=== PATIENT | female | born 1960 | race Caucasian/White ===

== ENCOUNTER → 2017-12-13 15:20 | Outpatient (CLI) | payer OTHER, SELFPAY | PROVIDERS: Visit Provider Obstetrics & Gynecology | DX: N39.0 Urinary tract infection, site not specified (principal) | CPT/HCPCS: 87086 ==

== ENCOUNTER → 2018-05-11 16:25 | Outpatient (CLI) | payer SELFPAY ==
[2018-05-17 13:25] LABS: HPV Reflexed? NOT INDICATED
== END ==
PROVIDERS: Family Provider Family Medicine; PCP Family Medicine; Visit Provider Obstetrics & Gynecology
DX: Z12.4 Encounter for screening for malignant neoplasm of cervix (principal)
CPT/HCPCS: 88175; G0145

== ENCOUNTER → 2022-02-10 | Outpatient (CLI) | payer OTHER, SELFPAY ==
--- NOTE | 2022-02-10 17:00 | RAD_ITS ---
STUDY: X-RAY CHEST REASON FOR EXAM: Female, 61 years old. breast cancer TECHNIQUE: PA and lateral COMPARISON: None. FINDINGS: LUNGS: No consolidation. No pneumothorax. MEDIASTINUM: Aorta tortuous and atherosclerotic. CARDIAC SILHOUETTE: Not enlarged. BONES AND SOFT TISSUES: No acute abnormalities. RAD/Chest PA and Lateral IMPRESSION: No evidence of active intrathoracic disease. Electronically Signed: Dora Tang MD at 7:34 EDT ,
== END | disposition home or self-care (01) ==
LOC: RAD 16:54
PROVIDERS: Visit Provider Internal Medicine Medical Oncology
DX: C50.919 Malignant neoplasm of unspecified site of unspecified female breast (principal)
CPT/HCPCS: 71046

== ENCOUNTER → 2022-02-18 | Outpatient (CLI) | payer OTHER, SELFPAY ==
--- NOTE | 2022-02-18 11:00 | MRI_ITS ---
STUDY: BILATERAL BREAST MR WITHOUT AND WITH CONTRAST REASON FOR EXAM: Female, 61 years old. Breast cancer. TECHNIQUE: Multi-sequence multi-echo imaging of both breasts was performed with a dedicated breast coil. T1-weighted and T2-weighted images were performed before the administration of contrast. T1-weighted images were also performed after the intravenous administration of 15 mL of Clariscan contrast. COMPARISON: Screening mammogram dated 01/12/2022, left breast ultrasound dated 01/14/2022 exam left breast biopsy images dated 01/28/2022. FINDINGS: RIGHT BREAST: The breast tissue is scattered fibroglandular densities with minimal background enhancement. There are no abnormal enhancing masses or areas of non-mass enhancement in the right breast. LEFT BREAST: The breast tissue is scattered fibroglandular densities with minimal background enhancement. 2 irregular enhancing masses in the upper aspect of the right breast. The smaller mass is more inferiorly and measures 1.4 cm x 1.3 cm x 1 cm. Superior to this mass is a larger irregular enhancing mass measuring 1.9 cm x 1.8 cm x 1.9 cm. Tissue clip marker artifact is noted in both of these masses. These masses correspond to the mammographic and ultrasonographic abnormalities seen on prior comparison studies. Morphologically normal lymph nodes in both axillae. There is no abnormality in the visualized regions of the chest or liver. MRI/Breast Bilateral W/O and W IMPRESSION: 2 irregular enhancing masses in the upper and slightly outer aspect of the left breast corresponding to the comparison imaging. Morphologically normal bilateral axillary lymph nodes. CATEGORY: BIRADS Category 6: Known Biopsy-Proven Malignancy - Appropriate Action Should Be Taken. A letter regarding these results will be sent to the patient by the facility within 30 days. Electronically Signed: Boby Sanchez MD at 9:54 EDT ,
== END | disposition home or self-care (01) ==
PROVIDERS: Referring Provider Internal Medicine Medical Oncology; Visit Provider Internal Medicine Medical Oncology
DX: C50.412 Malignant neoplasm of upper-outer quadrant of left female breast (principal)
CPT/HCPCS: 77049; A9575; A4216; C8908

== ENCOUNTER 2022-02-26 16:15 | Observation (INO) | payer OTHER, SELFPAY ==
--- NOTE | 2022-02-24 11:10 | EKG12_ITS ---
Test Reason : PREOP Blood Pressure : / mmHG Vent. Rate : 070 BPM Atrial Rate : 070 BPM P-R Int : 130 ms QRS Dur : 086 ms QT Int : 380 ms P-R-T Axes : 008 061 034 degrees QTc Int : 410 ms Normal sinus rhythm Normal ECG Confirmed by MARIAJOSE LAYTON, MAICOL ([id number]), design editor FLORENTIN CRUZ ([id number]) on 02/25/2022 8:51:58 AM Referred By: Rickey Zamudio Confirmed By:MAICOL BILLY MD
[2022-02-26] VITALS (9 sets, daily range): BP systolic 139–161; BP diastolic 75–91; PULSE 63–76; RESP 16–18; TEMP 36.4–36.9; O2SAT 97–100; BMI 28.2
--- NOTE | 2022-02-26 | AXNB_PTH ---
PATIENT: MELI DUEÑAS [place] [facility] [place][id number] AGE/SX: 61/F [place]OM[place] [facility] [place]02/26/[address]: Dr. Rickey Zamudio MD : 1960 BED: 1 DIS: 02/27/2022 SPEC #: [id number] RECD: 02/26/22 13:33 STATUS: KAY REDk #: [id number] CHRISTINE: 02/26/22 00:[address]: Rickey Zamudio DEPT: SURGICAL PATHOLOGY RECD BY: Prema Domingo ENTERED: 02/26/22 14:28 SP TYPE: AX NODE BX OTHR DR: YONI Hall Tissues: A - Axillary lymph node, NOS B - Axillary lymph node, NOS C - Left breast, NOS D - Right breast, NOS Procedures: Frozen Section (charge) Frozen Section Add'l ([facility]) Surgery Specimen Level V HEADER OPERATION: Left mastectomy, nuclear med tracer, sentinel lymph node biopsy PRE-OP DIAGNOSIS: Invasive ductal carcinoma left breast, prophylactic right total mastectomy TISSUE SUBMITTED: A - Left axillary sentinel lymph nodes, FS at 1323, B - Additional left axillary sentinel lymph nodes, FS at 1356, C - Left breast, suture cameron axillary side of breast, D - Right breast, suture cameron lateral aspect FROZEN SECTION DIAGNOSIS A. Left axillary lymph nodes, biopsy: Two out of two lymph nodes, negative for metastatic carcinoma. : 02/26/2022 B. Additional left axillary sentinel lymph nodes, biopsy: Two out of two lymph nodes, negative for metastatic carcinoma. : 02/26/2022 Case has been reviewed in consultation with Dr. Butt who concurs with the above diagnosis. IDC:AM MICROSCOPIC DIAGNOSIS A. Left axillary lymph nodes, biopsy: One out of two lymph nodes, positive for micrometastatic carcinoma. See comment. B. Additional left axillary sentinel lymph nodes, biopsy: Two out of two lymph nodes, negative for metastatic carcinoma. See comment. C. Left breast, mastectomy: Invasive ductal carcinoma, multifocal. Ductal carcinoma in situ. See cancer summary in the comment section. D. Right breast, mastectomy: Focal minimal fibrocystic changes and dense fibrosis. Focal microcalcifications. Nipple, no pathologic diagnosis. : 03/04/2022 COMMENT A. One lymph node is positive for micrometastatic carcinoma. Largest focus of micrometastatic carcinoma measures 0.4 mm in greatest dimension. Extranodal extension is not seen. Immunohistochemistry ([id number]) supports the diagnosis of micrometastatic carcinoma. Scant lymphoid tissue is noted in block #2, only in the frozen section slides. Permanent section shows only fibroadipose tissue. B. The lymph nodes are negative for metastatic carcinoma on multiple H & E levels and immunohisto-chemical stains for cytokeratins ([id number]). BREAST CANCER SUMMARY Procedure ? total mastectomy Specimen laterality - left Tumor size ? larger tumor, 1.5 x 1.5 x 1 cm Histologic grade (Tony grade): Glandular/tubular differentiation score - Nuclear pleomorphism score - 2 Mitotic count score - 1 Overall grade - grade 2 (score of 6) Tumor focality ? two foci of invasive carcinoma. Size of individual foci: Larger focus of invasive carcinoma (inferior tumor) 1.5 x 1.5 x 0.5 cm. Smaller focus invasive carcinoma. 0.5 cm in greatest dimension (superior tumor). This focus of tumor predominantly shows ductal carcinoma in situ, solid papillary type. Ductal carcinoma in situ ? present Positive for extensive intraductal component (EIC). Estimated size of DCIS ? largest focus of DCIS - 2 cm in greatest dimension. Number of blocks with DCIS - 9 Number of blocks examined - 22 Architectural pattern ? solid and solid papillary Nuclear grade - grade 2 (intermediate) Necrosis ? not identified Lobular carcinoma in situ ? not present Tumor extension: Skin ? skin is present and uninvolved Nipple ? DCIS does not involve nipple epidermis Skeletal muscle ? no skeletal muscle is present. Margins: Invasive carcinoma margin ? the tumor is 1 cm away from the closest posterior margin. Ductal carcinoma in situ margin ? the solid papillary carcinoma larger tumor is 0.6 cm away from the closest superior margin. Regional lymph nodes: Number of lymph nodes examined - 4 Number of sentinel lymph nodes examined - 4 Number of lymph nodes with micrometastases ? 1 (largest focus of micrometastatic carcinoma measures 0.4 mm in greatest dimension). Number of lymph nodes with macrometastases, or isolated tumor cells ? 0 Extranodal extension ? not present. Treatment effect - no known presurgical therapy. Lymphvascular invasion ? not identified Dermal lymphvascular invasion ? not identified Distant metastasis ? not applicable Additional Pathologic Findings ? - hyalinized fibroadenoma (0.8 cm in greatest dimension). - Intraductal hyperplasia with focal atypia. - Ductal dilatation. Ancillary Studies: Previously performed at [facility] ([id number]) breast, left, 2 o?clock, mass, ER: positive (90-100%, strong intensity) IL: positive (~20%, strong intensity) Ijq7omv: negative (score 0) left, 2 o?clock, lateral mass: ER: positive (90-100%, strong intensity) IL: positive (2%, weak) Sib7gry: equivocal (heterogeneity present, score 2+) Her2 by DUALISH can be performed if clinically needed. Please notify the laboratory if it is needed. Microcalcifications ? Present in the benign breast tissue. Clinical History - Previously performed at [facility] ([id number]) breast, left, 2 o?clock, mass, core biopsy with diagnosis of invasive ductal carcinoma, grade 2 and breast, left, 2 o?clock, lateral mass, core biopsy with diagnosis of invasive ductal carcinoma, grade 2 and ductal carcinoma in situ, solid type, grade 2 PATHOLOGIC STAGE: pT1c(n) pN1mi(sn) pMx The above summary is in compliance with [employer] [place] [employer] (CAP) Cancer Protocols Checklist and [place] Joint Committee on Cancer (AJCC), Staging Manual, 8th Ed. MICROSCOPIC DESCRIPTION Slides are reviewed. GROSS DESCRIPTION A - Received fresh for frozen section diagnosis labeled with the patient's name is a specimen designated left axillary sentinel lymph nodes. The specimen consists of a piece of fibroadipose tissue measuring 5 x 3.5 x 1 cm. Two lymph nodes are identified measuring 2 cm in greatest dimension. The lymph nodes are submitted in entirety for frozen section diagnosis in two cassettes as follows: 1 - one bisected lymph node, 2 - one lymph node. / SJ: 02/26/2022 B - Received fresh for frozen section diagnosis labeled with the patient's name is a specimen designated additional left axillary sentinel lymph nodes. The specimen consists of a piece of fibroadipose tissue measuring 4 x 3.5 x 0.5 cm. Two nodules consistent with lymph nodes measuring 0.5 and 1.5 cm in greatest dimension are identified. The lymph nodes are submitted entirely for frozen section diagnosis in two cassettes as follows: 1 - one bisected lymph node, 2 - second lymph node. / SJ: 02/26/2022 C - Received in fixative is one container labeled with the patient's name and designated left breast, suture cameron axillary side of breast. The specimen consists of a mastectomy specimen consisting of breast tissue with overlying skin ellipse. The breast tissue measures 22 x 19 x 6 cm and the overlying skin ellipse measures 17.5 x 6.5 cm and nipple measures 1 cm in greatest dimension. The specimen is inked as follows: posterior - black, superior - blue, inferior - green, medial - red and lateral - orange. Sections reveal a neri indurated masses in the upper outer quadrant measuring 2.0 x 2.0 x 1.5 cm. This mass is 0.6 cm away from the superior margin. A second mass is present inferior to the first mass (~0.2?cm away from the first mass) measuring 1.5 x 1.5 x 1.0 cm. this mass is 1.0 cm away from the closest posterior margin. Section of the rest of the specimen reveal neri- yellow adipose cut surfaces mixed with neri fibrous areas. Sections will be submitted after fixation. / SJ: 02/27/2022 Sections of the second tumor shows dense fibrous area adjacent to it. Senior Operations Manager sections are submitted in 20 cassettes as follows: 1 - nipple, entirely submitted, 2??perpendicular medial, lateral and inferior margins, 3 - perpendicular posterior margin and skin, 47??tumor #1 (4 also contains the closest superior margin), 8-17 - second tumor present inferiorly and adjacent surrounding tissue (cassette 8 contains the area with the clip), 18-20 - Senior Operations Manager sections from the other areas. / SJ: 03/03/2022 More sections are submitted as follows: Cassettes 21 & 22 - superior tumor. Both tumors are submitted in entirety. / SJ:gray 03/04/2022 D - Received in fixative is one container labeled with the patient's name and designated right breast. The specimen consists of a mastectomy measuring 20 x 17 x 4 cm. An ellipse of unremarkable skin containing a centrally located nipple is present on the anterior surface. The skin fragment measures 17.5 x 6.5 cm. The specimen weighs 673 gm. The specimen is inked as follows: superior - blue, inferior - green and posterior - black. The specimen is serially sectioned from a medial to lateral fashion. The cut surfaces reveal mostly fatty parenchyma with focal dense, white fibrous streaks. No distinct mass lesion is identified. Senior Operations Manager sections are submitted in ten cassettes as follows: 1 - nipple and areola, 2??perpendicular superior margin, 3 - perpendicular inferior margin, 4 - perpendicular medial margin, 5??perpendicular lateral margin, 6 - perpendicular inked margin, 7-10 - Senior Operations Manager sections of breast parenchyma. Note, sections are submitted after additional fixation. / AM:gray 02/27/2022 TC:0 CPT: 25000 x4, 51861 x2, 45637 x2 ADDENDUM ADDENDUM ADDENDUM ADDENDUM ADDENDUM ADDENDUM ADDENDUM ADDENDUM ADDENDUM ADDENDUM ADDENDUM 03/25/2022 10:07 ADDENDUM 04/08/2022 09:17 ADDENDUM 03/25/2022 10:07 ADDENDUM 03/25/2022 10:07 ADDENDUM 03/25/2022 10:07 ADDENDUM 03/25/2022 10:07 AUTOMATED BREAST CANCER HER2/YUMIKO FISH ANALYSIS FROM [employer] Interpretation and Results: Negative / Not Amplified HER2 : CEP-17 Ratio: 0.9:1 Average HER2 Signal: 2.3 Average CEP-17 Signal: 2.4 Number of Tumor Cells Scanned: 50 Please see complete report in e-chart or EMR An order for Oncotype testing was received from Dr. Acevedo. This necessitated case review, block and slide selection by pathologist at [facility]. Breast Cancer Recurrence Score = 12 Results of the complete Oncotype testing ([employer] report) are viewable in EMR under: Reports - Pathology - Lab Pathology Report, Scanned.
--- NOTE | 2022-02-26 | IMM_PTH ---
PATIENT: MELI DUEÑAS LOC: [facility] U#:[id number] AGE/SX: 61/F [place] [facility] [place]: Dr. Rickey Zamudio MD : 1960 BED: 1 DIS: 02/27/2022 SPEC #: [id number] RECD: 03/04/22 13:12 STATUS: KAY REQ #: [id number] CHRISTINE: 02/26/22 00:[address]: Rickey Zamudio DEPT: IMMUNOHISTOCHEMISTRY RECD BY: Prema Domingo ENTERED: 03/04/22 13:15 SP TYPE: IMMUNO OTHR DR: YONI Hall Tissues: A - Axillary lymph node, NOS B - Axillary lymph node, NOS Procedures: CK7 (add) Pankeratin (initial) Pankeratin (add) PHYSICIAN & INSTITUTION [place] [address] SPECIMEN INFORMATION: Tissue Source: A ? Left axillary sentinel lymph nodes, B ? Additional left axillary sentinel lymph nodes Clinical Info: Invasive ductal carcinoma left breast Specimen Number: [id number] A1, B1 & B2 CPT code: 96511 x2, 04064 x4 METHODOLOGY: Deparaffinized sections of prefer/formalin-fixed tissue or PAP/DQ stained slides are incubated with monoclonal/polyclonal antibodies/oligonucleotide probes. Localization is made via biotin free immunoperoxidase method. Appropriate controls are performed and reacted as expected. Results on target cell population are indicated in the following table: RESULTS: ANTIBODY / CLONE RESULT Block A1 AE1-3 (AE1/AE3/PCK26) positive (micrometastasis) CK7 (OV-TL12/30) positive (micrometastasis) Block B1 AE1-3 (AE1/AE3/PCK26) negative CK7 (OV-TL12/30) negative Block B2 AE1-3 (AE1/AE3/PCK26) negative CK7 (OV-TL12/30) negative These tests were developed and their performance characteristics determined by [facility]. They may not have been cleared or approved by the U.S. Food and Drug Administration. The FDA has determined that such clearance or approval is not necessary. The above immunohistochemical/dualISH markers are ordered and reviewed by the Pathologist. INTERPRETATION: A. Left axillary sentinel lymph node, biopsy: One lymph node, positive for micrometastatic carcinoma. See comment. B. Additional left axillary sentinel lymph nodes, biopsy: Two out of two lymph nodes, negative for metastatic carcinoma. SJ:gray 03/05/2022 Comment: Largest focus of micrometastatic carcinoma measures 0.4 mm in greatest dimension. Case has been reviewed in consultation with Dr. Butt who concurs with the above diagnosis. IDC:AM
--- NOTE | 2022-02-26 09:30 | NM_ITS ---
PROCEDURE: NUCLEAR MEDICINE Injection [place] Node - LEFT breast(s). REASON FOR EXAM: Female, 61 years old. Left breast cancer. TECHNIQUE: [place] node localization using radionuclide methods of the LEFT breast(s) was performed following subcutaneous administration of 1.1 mCi of of sulfur colloid Tc-99m. FINDINGS: 1.1 mCi of technetium labeled sulfur colloid were injected subcutaneously in the left retroareolar region. NM/Lymph Node Injection Only IMPRESSION: 1.1 mCi of Tc labeled sulfur colloid injected subcutaneously in 4 equal aliquots in the left periareolar region. Electronically Signed: Ady Lau MD at 13:55 EDT ,
[2022-02-26] MEDS: Lactated Ringers 1,000 ML 15 ML IV ×2 (09:35→16:47)
--- NOTE | 2022-02-26 11:29 | HP.PCM_ITS ---
History and Physical Date of Admission: 02/26/22 Visit Reasons:?L Breast Surgery Consult Chief Complaint: left breast surgery consult Python Architect Required: No Accompanied by: Is patient in pain?: No Allergies No Known Allergies Allergy (Verified 02/20/22 13:59) Medications NK? 02/10/22 [History Confirmed 02/20/22] PFSH Medical History? Chronic eczema Dysfunctional uterine bleeding Effusion, right knee Mass of left breast on mammogram Surgical History? H/O repair of rotator cuff History of delivery History of pyloroplasty Hx of cholecystectomy Family History? Grandmother CancerAunt CancerGrandfather CAD (coronary artery disease)Father HypertensionFather?? Cancer ?? ? prostate ?? ? Social History? Smoking Status:? Never smoker HPI HPI HPI: MELI DUEÑAS, is a 61 F who presents to the office today for surgical consultation regarding biopsy-proven invasive ductal carcinoma multifocal left breast disease.? The patient is being referred by Dr. Ede Acevedo and a written copy of my surgical consult recommendations will return to him.? By report the patient had a core biopsy performed at [facility] on January 28, 2022 of 2 lesions in the left breast2 o'clock position.? The more medial lesion invasive ductal carcinoma grade 2 estrogen receptor positive at 9100%.? Progesterone receptor positive at 20%.? HER2/ananth negative.? The more lateral lesion left breast 2 o'clock position shows invasive ductal carcinoma grade 2.? Estrogen receptor positive at 9200%.? Progesterone receptor +2% weak HER2/ananth was equivocal. On January 12, 2022 at [facility] the patient had bilateral screening mammography.? Left breast was felt that the 2 lesions at the 2 o'clock position.? The more medial lesion 14 x 15 x 16 mm in size in the slightly more lateral lesion 10 x 12 mm in size.? There is also a grouping of dense calcifications in the upper outer aspect of the left breast unchanged from the previous exam of October 06, 2019.? On January 12, 2022 at [facility] the patient had a left breast ultrasound.? 2 o'clock position more medial lesion 15 x 15 x 16 mm in size in the slightly more lateral lesion at 2:00 15 x 15 x 11 mm in size.? These were felt to be diagnostic category 4B moderate suspicion for malignancy.? The patient also had left breast magnification tomographic views performed January 12, 2022.? An area of distortion previously noted medially on the cc view of the left breast was not further identified.? The mass is noted at the 2:00 positions were confirmed. A breast MRI was obtained at the [facility] on February 18, 2022.? This demonstrates 2 irregular enhancing masses upper outer left breast the smaller one slightly inferiorly measuring 1.4 x 1.3 x 1 cm in the superior one 1.9 x 1.8 x 1.9 cm.? Tissue marker clips identified.? Morphology of lymph nodes in both axilla are similar.? No evidence for suspicious adenopathy. ROS General General: Yes breast cancer; No weight change, appetite, fatigue, colon cancer or weakness HEENT HEENT: No difficulty swallowing, eye injury, eye surgery, swollen glands or hoarseness Endo Endocrine: No thyroid disease, diabetes mellitus, thyroid cancer, Hair loss, heat intolerance or cold intolerance Skin Skin: No rash or changing moles Breast Breast: Yes left breast lump and abnormal mammogram; No right breast lump, nipple discharge, breast pain, abnormal US or breast enlargement Musc Musculoskeletal: No back problems, arthritis, rheumatoid arthritis, gout or joint pain Cardio Cardiovascular: No murmur, pacemaker, heart disease, atrial fibrillation, high blood pressure, heart attack, heart stent, palpitations, shortness of breat with exertion or chest pain Psych Psychiatric: No depression, anxiety or hearing voices Resp Respiratory: No shortness of breath, No sleep apnea, No cough, No COPD, No asthma, No emphysema and No wheezing Gastro Gastrointestinal: No abdominal pain, No nausea or vomiting, No diarrhea, No constipation, No blood in stool, No acid reflux, No hemorrhoids, No ulcers, No gallbladder problem and No black,tarry stools Reid Hematologic: No blood thinners, No blood disorders, No bleeding, No anemia and No blood clots Neuro Neurologic: No system reviewed and no additional complaints, except as documented, No as per HPI, No abnormal gait, No abnormal hearing, No abnormal movements, No abnormal speech, No behavioral changes, No burning sensations, No confusion, No convulsions, No disequilibrium, No dizziness, No localized weakness, No frequent falls, No headache(s), No lack of coordination, No loss of vision, No memory loss, No numbness, No other visual disturbances, No radicular pain, No restless legs, No sensory deficit, No syncope, No tingling, No tremor(s), No weakness and No other Exam Const General: cooperative, healthy appearing, comfortable and no acute distress Nutritional Appearance: overweight Orientation: alert and awake [facility] [place] Head: normal to inspection Ears: hearing grossly normal bilaterally Eyes General: appearance normal, both eyes and all related structures Neck Neck: normal visual inspection Chest Other: Right breast: No focal mass no nipple discharge no axillary or clavicular adenopathy Left breast: Firm partially mobile mass upper outer quadrant left breast 2 o'clock position which on ultrasound measuring the distance of the conglomerate measures out to be at least 6 cm.? No palpable left axillary adenopathy.? Slight discoloration from the recent needle core biopsy.? No axillary adenopathy. Resp Effort & Inspection: normal respiratory effort Auscultation: clear to auscultation bilaterally Cardio Rate: regular rate Rhythm: regular rhythm GI Inspection: normal to inspection Palpation: soft and no hepatosplenomegaly Auscultation: normal bowel sounds Musc Cervical Spine: normal cervical lordosis Skin General: no rashes or lesions noted Neuro General: patient alert, patient awake and patient oriented x3 Extrem General: normal to inspection and no calf tenderness Psych Appearance: grossly normal Assessment and Plan Assessment and Plan (1) Invasive ductal carcinoma of left breast: ?Status:?Acute ?Plan: Today was an extensive 60-minute office consultation.? I have looked with ultrasound to try to help with measurement upper outer quadrant left breast.? The 2 lesions by short distance but the conglomerate being at least 6 cm in the upper outer quadrant of the left breast.? No palpable adenopathy and no visualized adenopathy on MRI. In great detail we discussed treatment options.? We discussed breast conservation technique lumpectomy sentinel node biopsy with nuclear tracer and blue dye and subsequent radiation treatment.? Great detail discussed the technique the possibility of positive surgical margins the cosmetic change from the size of tumor root being removed and the possible need for completion axill enio lymph node dissection.? We discussed the potential of positive margins and need to return for surgery.? We compared and contrasted that to a left total mastectomy with sentinel node biopsy possible axillary dissection.? We discussed mastectomy with or without immediate reconstruction or reconstruction at all. After listening to the patient she states that previous mammograms had demonstrated some abnormality in the upper inner quadrant left breast which was felt to be benign.? Her most recent mammogram for comparison was 2 years ago.? She is very interested at this point in proceeding with definitive treatment.? She is concerned about the amount of time that already has gone by. I have been very insistent of her that she with the help of her consider all the treatment options available.? We have discussed referral to a tertiary center if requested.? We additionally discussed the potential of neoadjuvant chemotherapy to further assist with the possibility of breast conservation surgery and a lumpectomy.? The patient and however are very much interested in avoiding chemotherapy if at all possible. At this point she is favoring a left mastectomy with sentinel node biopsy and possible axillary dissection if indicated.? She is not wanting breast reconstruction at this time. We have provided her information packets.? We also have arranged for her to see Dr. Ede Acevedo early next week.? We have tentatively set an operative date for February 26, 2022.? The patient and however are absolutely aware that this procedure can be delayed subsequently if they are not sure of the procedure that is desired. She has had an opportunity to ask and have questions answered.? We will tentatively schedule and proceed as noted. Copy: Dr. Ede Acevedo and YONI Hall M.D., F.A.C.S. The patient has been seen now twice in consultation with Dr. Ede Acevedo. Subsequent to his most recent consultation where he discussed left breast conservation surgery versus mastectomy the patient in discussion with her presented and requested that not only that we proceed with a therapeutic left total mastectomy with left axillary sentinel lymph node biopsy and if need be axillary lymph node dissection but also she was requesting a prophylactic right total mastectomy. She is declining reconstruction at this time. She is aware of the technique, benefit, risk, alternatives. She has had an opportunity to ask and have questions answered and we had had an extensive discussion during our office visit as well. She confirms that this is how she would like to proceed. Rickey Zamudio M.D., F.A.C.S.
--- NOTE | 2022-02-26 12:16 | EX.PCM.DISCH ---
Discharge Instructions Procedure Breast Surgery Diet Discharge Diet: No restrictions Activity Discharge Activity: May Not Drive (for 2-3 days or while taking narcotic pain meds.) May shower in (days): 6 Lifting Restrictions: 10 pounds for 1 week. Dressing / Incision Call your doctor if your incision/area has: Continuous Slow Oozing and Sudden Increased Bleeding Call your doctor if you observe: Fever of 101 or Higher Suture Line Care: Avoid Pulling/Pushing and Avoid Pinching/Bending Additional Dressing/Incision Instructions:: Please change your dressings daily. You may utilize a Q-tip and peroxide to cleanse at the drain exit site and then apply dry gauze and tape. Leave the Steri-Strips in place at the mastectomy sites. No cleansing of this area required until after the Steri-Strips are removed. Empty, measure, record your drain output and please bring into your office appointment with you. Follow Up Care Please Follow Up With: Rickey Zamudio MD When: Please call [phone] for office follow up appt. on 03/03/22. Discharge Plan Admission Admit Date/Time: 02/26/22 16:15 Primary Reason for Your Visit: Left breast cancer. Prophylactic right mastectomy Attending Provider: Rickey Zamudio Primary Care Provider: Ivana Munoz Discharge Orders/Prescriptions Prescriptions: New hydrocodone-acetaminophen 5-325 mg tablet 1 tab PO Q6H PRN (Reason: pain) 3 Days Qty: 10 0RF Referrals / Follow Up: Ivana Munoz PA [Primary Care Provider] - Disposition Disposition (needs filled in before D/C Order can be placed): Home, Self Care
[2022-02-26] MEDS: Cefazolin 2 GM in 0.9% Normal Saline 100 ML IV (12:23)
[2022-02-26] MEDS: Isosulfan Blue 1% 5 ML Vial (12:35)
--- NOTE | 2022-02-26 16:21 | OP.PCM_ITS ---
Report of Operation Date of Procedure: 02/26/22 Pre-Operative Diagnosis: Multifocal upper outer quadrant left breast invasive d uctal carcinoma Post-Operative Diagnosis: Same Surgery/Procedure Performed:: Blue dye and nuclear tracer left axillary sentinel lymph node biopsy with subsequent left total mastectomy Prophylactic right total mastectomy Description of Surgical Findings:: Timeout informed consent was obtained. 61-year-old female was taken to the operating placed upon the table underwent general anesthesia. Bilateral arms were carefully wrapped with soft roll and placed on arm holders at right angles to the table. The patient received 2 g of Ancef intravenously. Bilateral breasts were sterilely prepped and draped. Nuclear tracer had already been injected in the left periareolar area per radiology. I injected 3 cc of i sosulfan blue dye into the left breast and perform massage for 3 minutes. Subsequently a transverse ellipse of skin nipple areolar total mastectomy incision performed. The superior flap was created using sharp and electrocautery dissection. Significant amount of pressurized small blood vessels were encountered requiring increased treatment with cautery or even 3-0 Vicryl suture ligatures. Dissection was then performed into the axilla where the blue dye tracing was identified and the neoprobe was utilized as well. Synoptic portion The operation was performed for curative intent. Yes Nuclear tracer and isosulfan blue dye were both utilized to identify the left axillary sentinel lymph nodes in the up front surgery nonneoadjuvant setting Nuclear tracer and blue dye were not applicable to the neoadjuvant setting All nodes that had blue dye and or nuclear tracer were removed at the time of the sentinel lymph node biopsy yes. All significant radioactive lymph nodes were removed yes all palpably suspicious lymph nodes were removed yes there were no biopsy proven preoperative lymph nodes with clips removed as this was not applicable Upon my initial dissection the left axilla removed sentinel nodes sent that packet material to pathology and I received a report that there were 2 sentinel lymph nodes both negative for metastatic disease. Based upon persistent nuclear tracer I did a slightly deeper dissection more tissue was removed and sent and pathology reported that I sent them to additional sentinel nodes and these 2 were both negative thus holding for sentinel nodes on frozen section negative for metastatic disease. On visualization and palpation and neoprobe inspection there was no residual suspicious lymph node material within the left axilla. Subsequently performed the anterior flap with left cautery and sharp dissection. Breast tissue was taken with the pectoralis fascia off the pectoralis major muscle. A suture was placed in the lateral aspect of that specimen. The chest wall was irrigated with sterile water. 2 stab incision was made inferior and lateral and 215 round drains were exited. The axillary drain would shorten the length. Drains were secured with 3-0 nylon. The flaps were then closed by proceeding the flaps to the chest wall with interrupted 3-0 Vicryl and subdermal sutures of 3-0 Vicryl similarly performed. Steri-Strips applied followed by a blue drape. Gowns gloves and cover sheet is changed Strict mentation was utilized. Attention was now drawn to the right breast for prophylactic mastectomy. A transverse ellipse to include the nipple areolar complex was performed and again as on the left superior and inferior flaps were raised. Again small vessels that had a penchant to bleed were encountered and had to be controlled with hemoclips or electrocautery or 3-0 Vicryl suture. The breast tissue was then taken with the pectoralis fascia. There was no intent for lymph node dissection on the right. Flaps were viable as they were on the left hemostasis was intact a stab incision was made inferior and lateral on the right and a 15 round NICKOLAS drain was exited secured there with 3-0 nylon. The drain was placed to the s uperior and medial flap areas. Again the flaps were pleated to the chest wall with interrupted 3-0 Vicryl in the subdermal edges approximated the same. Interrupted 4-0 Monocryl was utilized for skin edges required more final control. Subsequently Steri-Strips Telfa dressings bulky dry dressings bias ply wrap was applied. The drains have been placed to closed bulb suction. Sponge and instrument and needle counts were reported to the surgeon to be correct. Specimens. 4 left axillary sentinel lymph nodes. Left total mastectomy. Right total mastectomy. The patient was taken to the recovery room in satisfactory addition without complication Rickey Zamudio M.D., F.A.C.S. . Surgeon: Rickey Zamudio Type of Anesthesia: General Anesthesiologist: Clement Nielson
[2022-02-26] MEDS: HYDROcodone Bitartrate/Apap 5/325 Tablet PO (22:05)
[2022-02-27 02:02] VITALS: BP 131/78; PULSE 67; RESP 16; TEMP 36.9; O2SAT 98
--- NOTE | 2022-02-27 05:58 | PN.SURG_ITS ---
Subjective Subjective Patient feels that she is doing well. With assistance she was able to get up to the bathroom and void. She has discomfort but that is being treated with oral medication. Objective Data Objective Data Vital Signs: Vital Signs Temp Pulse Resp BP Pulse Ox O2 Del Method 98.5 F 67 16 131/78 H 98 Room Air 02/27/22 02:02 02/27/22 02:02 02/27/22 02:02 02/27/22 02:02 02/27/22 02:02 02/27/22 02:02 Oxygen Delivery Method Room Air Weight: 154 lb 5.177 oz Body Mass Index (BMI) 28.2 Intake & Output: Intake and Output for Last 24 Hours 02/25/22 02/26/22 02/27/22 23:59 23:59 23:59 Intake Total 1189.75 / 1189.75 Output Total 55 / 555 500 / 500 Balance 1134.75 / 634.75 -500 / -500 Radiography Diagnostic Testing: Radiology Impression [place] Node 02/26/22 09:30 IMPRESSION: 1.1 mCi of Tc labeled sulfur colloid injected subcutaneously in 4 equal aliquots in the left periareolar region. Electronically Signed: Ady Lau MD at 13:55 EDT , Physical Exam Narrative Bilateral chest incisions appear to be clean and dry. NICKOLAS drain output from all 4 drains relatively moderate. Dressings otherwise clean and dry. Assessment & Plan Assessment/Plan (1) Invasive ductal carcinoma of left breast: PLAN: Plan dressing change and then subsequent discharge today. Anticipate office follow-up on Wednesday. Rickey Zamudio M.D., F.A.C.S.
[2022-02-27 06:02] VITALS: BP 147/86; PULSE 61; RESP 16; TEMP 36.6; O2SAT 97
[2022-02-27] MEDS: HYDROcodone Bitartrate/Apap 5/325 Tablet PO (06:06)
[2022-02-27 09:07] VITALS: BP 137/83; PULSE 71; RESP 18; TEMP 36.6; O2SAT 96
--- NOTE | 2022-02-27 10:07 | WOUNDNOTE ---
Dressings to chest and NICKOLAS drain dressings changed per order. present at bedside for teaching. there was minimal drainage noted on the mastectomy dressings. steri strips in place. no bruising noted. incisions are well approximated. patient states some mild discomfort to the left axilla. NICKOLAS sites cleansed with peroxide. applied new split gauze with gauze placed over top. secured with tape. placed ABD pads over the mastectomy incisions. reapplied the bias ply wrap. reviewed how to empty NICKOLAS drains and strip the tubing. dressing supplies and cups to measure the drainage sent with patient. teaching booklet given as well as form to record drainage. pt and aware to take NICKOLAS drainage form to follow up appt. pt tolerated well. denies questions at this time.
--- NOTE | 2022-02-27 10:13 | WOUNDNOTE ---
Had assisted patient to the BSC. pt did not feel she could make it into the bathroom d/t feeling nauseated and slightly dizzy. patient feels may be caused from the pain medication that was given this am. patient had vomited small amount twice while up on the commode. patient states I just feel hot. cool washcloth given and fan placed at bedside. assisted patient back into the bed. bath wipes used to wipe back and new gown applied. pt very appreciative. denies further needs at this time. MUSA Hernandez aware.
--- NOTE | 2022-02-27 11:30 | NURSING ---
Patient resting in bed, eating a few bites of breakfast. Pt states she is tired and thinks two pain pills were too many. Reports nausea has subsided.
--- NOTE | 2022-02-27 13:08 | CASEMGMT ---
RN CM in to pt room, pt resting in bed with visitor at bedside. Pt denies any homegoing needs. Pt states I will be fine once I get home.
[2022-02-27 13:47] VITALS: BP 158/83; PULSE 73; RESP 18; TEMP 36.6; O2SAT 99
== END 2022-02-27 16:20 | disposition home or self-care (01) ==
LOC: MS3 02-27 05:58 → SDC 03-04 07:24
PROVIDERS: Admitting Provider Surgery; Referring Provider Surgery; Visit Provider Surgery
PROC: (CPT 19307; principal; 2022-02-26 11:45)
DX: C50.912 Malignant neoplasm of unspecified site of left female breast (principal); K86.1 Other chronic pancreatitis; Z17.0 Estrogen receptor positive status [ER+]; E74.39 Other disorders of intestinal carbohydrate absorption; M19.90 Unspecified osteoarthritis, unspecified site; R20.2 Paresthesia of skin; M13.0 Polyarthritis, unspecified; Z78.0 Asymptomatic menopausal state; M25.461 Effusion, right knee; N93.8 Other specified abnormal uterine and vaginal bleeding; L30.9 Dermatitis, unspecified
CPT/HCPCS: 19303; 38525; 00400; 38792; 88305; 88307; 88331; 88332; 88341; 88342; 93005; 99218; 99251; A9541; J7120; G0378; G0463; J2405; Q9968

== ENCOUNTER → 2022-03-24 | Outpatient (CLI) | payer OTHER, SELFPAY ==
--- NOTE | 2022-03-24 12:08 | BD_ITS ---
STUDY: DUAL ENERGY X-RAY ABSORPTIOMETRY / DXA REASON FOR EXAM: Female, 61 years old. SCREENING -- BREAST CANCER TECHNIQUE: Bone Mineral Density (BMD) measurements of lumbar spine and bilateral hips were obtained. COMPARISON: None. FINDINGS: Lumbar Spine (L1-L4): g/cm2 (0.956) / T-score (-0.8) / Z-score (0.5) Findings are suggestive of normal bone density with a low fracture risk. Left Femur Total: g/cm2 (0.838) / T-score (-0.8) / Z-score (0.1) Left Femoral Neck: g/cm2 (0.612) / T-score (-2.1) / Z-score (-0.9) Right Femur Total: g/cm2 (0.863) / T-score (-0.7) / Z-score (0.3) Right Femoral Neck: g/cm2 (0.644) / T-score (-1.8) / Z-score (-0.6) BD/Dexa Bone Density Study IMPRESSION: The patient is considered osteopenic as outlined below according to World Gerald Organization (WHO) criteria with a moderate fracture risk. Reference Information: The T-score is the number of standard deviations above or below the standard which is normal for young adults at their peak bone mineral density. The World Health Organization (WHO) interprets the T-scores as follows: Above -1 Normal bone density Between -1 and -2.5 Osteopenia Equal to / or below -2.5 Osteoporosis As a practical clinical guideline, osteopenia may be graded as follows: Mild -1 through -1.5 Moderate -1.6 through -2.0 Severe -2.1 through -2.4 The Z-score is the number of standard deviations above or below age-matched controls. A Z-score of less than -1.5 would be considered abnormal. References: 1. NIH Osteoporosis and Related Bone Diseases www osteo.org 2. International Society for Clinical Densitometry www iscd.org 3. National Osteoporosis Foundation www nof.org Electronically Signed: Ady Lau MD at 15:35 EDT ,
--- NOTE | 2022-03-24 12:22 | CT_ITS ---
HISTORY: Breast cancer staging. TECHNIQUE: Helically acquired images were obtained of the chest, abdomen, and pelvis after the intravenous administration of 100 mL Isovue 300 and oral Gastrografin. 2-D reformatted images provided. A radiation dose optimization technique was used for this scan. 1115 images. COMPARISON: X-ray 02/10/2022 FINDINGS: ----Chest: LARGE AIRWAYS: Patent. LUNGS: Clear. PLEURA: No pneumothorax or significant pleural effusion. HEART AND PERICARDIUM: Heart within normal limits in size. No significant pericardial effusion. VESSELS: No thoracic aortic aneurysm or dissection flap. No large central central pulmonary embolism although study not performed with the pulmonary embolism protocol. MEDIASTINUM AND GULSHAN: No pathologically enlarged lymph nodes. BONES: Surgical anchor in the right humeral head. No suspicious osteoblastic or osteolytic lesion. CHEST WALL: Surgical clips in the left breast and axilla. Small left axillary lymph nodes not pathologically enlarged. ----Abdomen/Pelvis: BOWEL: Bowel including appendix nondilated. Moderate stool in the colon. PERITONEUM: No significant free fluid or pathologically enlarged lymph nodes. LIVER: Fatty infiltration without enhancing mass. GALLBLADDER/BILIARY TREE: Absent gallbladder with a mildly dilated common duct, likely postoperative. SPLEEN: Homogeneous and not enlarged. PANCREAS: Mild fatty replacement without enhancing mass. KIDNEYS/ADRENAL GLANDS: Unremarkable. VESSELS: No abdominal aortic aneurysm. PELVIC ORGANS: Unremarkable. BONES: Mild degenerative change without suspicious osteoblastic or osteolytic lesion. CT/CT Chest, Abd, Pel w/Contrast IMPRESSION: No evidence for metastatic disease in the chest. No acute process identified. No evidence for metastatic disease in the abdomen or pelvis. Hepatic steatosis. Cholecystectomy with mild postoperative dilatation of the common duct. Electronically Signed: Ana Hogue MD at 16:39 EDT ,
== END | disposition home or self-care (01) ==
LOC: CT 12:01
PROVIDERS: Visit Provider Internal Medicine Medical Oncology
DX: C50.412 Malignant neoplasm of upper-outer quadrant of left female breast (principal); Z13.820 Encounter for screening for osteoporosis
CPT/HCPCS: 71260; 74177; 77080; Q9967

== ENCOUNTER → 2022-03-26 | Outpatient (CLI) | payer OTHER, SELFPAY ==
--- NOTE | 2022-03-26 08:59 | NM_ITS ---
CLINICAL: Female, 61 years old. STAGING -BREAST CA -- Some low back pain -- No other patient complaints WHOLE BODY NUCLEAR BONE SCAN TECHNIQUE: Following the IV administration of 25.3 mCi of Tc MDP, whole body bone imaging was performed with a gamma camera following a three hour delay. COMPARISON STUDIES : NM - None. CR - Not available for review at this time. CT - Not available for review at this time. MR - Not available for review at this time. US - Not available for review at this time. FINDINGS: There is a normal concentration of radiopharmaceutical throughout the axial and appendicular skeletal system without either a focal decrease or increase in uptake. NM/Bone Scan Whole Body IMPRESSION: Normal whole body nuclear bone scan. Electronically Signed: Ady Lau MD at 15:31 EDT ,
== END | disposition home or self-care (01) ==
LOC: NM 08:58
PROVIDERS: Referring Provider Internal Medicine Medical Oncology; Visit Provider Internal Medicine Medical Oncology
DX: C50.412 Malignant neoplasm of upper-outer quadrant of left female breast (principal)
CPT/HCPCS: 78306; A9503

== ENCOUNTER → 2024-07-26 | Outpatient (CLI) | payer OTHER, SELFPAY ==
--- NOTE | 2024-07-26 11:57 | BD_ITS ---
STUDY: DUAL ENERGY X-RAY ABSORPTIOMETRY / DXA REASON FOR EXAM: Female, 63 years old. Screening for osteoporosis TECHNIQUE: Bone Mineral Density (BMD) measurements of lumbar spine and bilateral hips were obtained. COMPARISON: Comparison is made with prior study dated March 24, 2022. FINDINGS: Lumbar Spine (L1-L4): g/cm2 (0.902) / T-score (-1.3) / Z-score (0.2) Findings are suggestive of osteopenia with a low fracture risk. Left Femur Total: g/cm2 (0.781) / T-score (-1.3) / Z-score (-0.3) Left Femoral Neck: g/cm2 (0.540) / T-score (-2.8) / Z-score (-1.4) Right Femur Total: g/cm2 (0.801) / T-score (-1.2) / Z-score (-0.1) Right Femoral Neck: g/cm2 (0.581) / T-score (-2.4) / Z-score (-1.1) The T-Scores on the most recent prior examination were: Lumbar Spine (L1-L4): There has been worsening of bone density since the previous examination. Left Femur Total: which represents a worsening of 6.9%. Right Femur Total: which represents a worsening of 7.1%. BD/Dexa Bone Density Study IMPRESSION: The patient is considered osteoporotic as outlined below according to World Gerald Organization (WHO) criteria with a high fracture risk. There has been worsening of bone density since the previous examination. Reference Information: The T-score is the number of standard deviations above or below the standard which is normal for young adults at their peak bone mineral density. The World Health Organization (WHO) interprets the T-scores as follows: Above -1 Normal bone density Between -1 and -2.5 Osteopenia Equal to / or below -2.5 Osteoporosis As a practical clinical guideline, osteopenia may be graded as follows: Mild -1 through -1.5 Moderate -1.6 through -2.0 Severe -2.1 through -2.4 The Z-score is the number of standard deviations above or below age-matched controls. A Z-score of less than -1.5 would be considered abnormal. References: 1. NIH Osteoporosis and Related Bone Diseases www osteo.org 2. International Society for Clinical Densitometry www iscd.org 3. National Osteoporosis Foundation www nof.org Electronically Signed: Ady Lau MD at 12:32 EST ,
== END | disposition home or self-care (01) ==
LOC: OPBD 11:49
PROVIDERS: Referring Provider Nurse Practitioner Family; Visit Provider Nurse Practitioner Family
DX: M81.0 Age-related osteoporosis without current pathological fracture (principal); M85.80 Other specified disorders of bone density and structure, unspecified site
CPT/HCPCS: 77080